=== PATIENT | female | born 1990 | race African-American/Black ===

== ENCOUNTER 2017-08-04 14:35 | Outpatient (CLI) | payer BC, OTHER | END 2017-08-04 14:36 | disposition home or self-care (01) | LOC: ULT 14:35 | PROVIDERS: ATTEND Family Medicine | DX: I38 Endocarditis, valve unspecified (principal) | CPT/HCPCS: 93306 ==

== ENCOUNTER 2017-08-30 06:58 | Emergency (ER) | payer BC, OTHER ==
[2017-08-30] MEDS ORDERED: Ondansetron ODT 4 MG TAB ONE (07:47)
[2017-08-30] MEDS ORDERED: Loperamide HCl 2 MG CAP ONE (07:47)
[2017-08-30 08:07] LABS: Bilirubin Negative (Negative); Blood, Urine Moderate (Negative); Clarity CLOUDY (Clear); Glucose, Urine (Dipstick) Negative (Negative); Leukocyte Moderate (Negative); Nitrite Negative (Negative); Protein, Urine (Dipstick) Negative (Neg-Trace); Specific Gravity, Urine 1.019 (1.002-1.036); Urobilinogen 0.2 mg/dL (0.2-1.0); pH, Urine 6.5 (5.0-9.0)
[2017-08-30 08:09] LABS: Bacteria/HPF 1+ HPF (None Seen); Hyaline Casts/LPF 4-6 HYALINE CAST LPF (0-3 Hyaline); Squamous Epithelial 0-3 HPF (0-3); WBC/HPF 21-50 HPF (0-3)
[2017-08-30 08:12] LABS: #Eosinphils 0.2 thou/uL (0.0-0.7); #Lymphocytes 2.1 thou/uL (1.20-3.40); #Monocytes 0.6 thou/uL (0.11-0.59); #Neutrophils 5.5 thou/uL (1.40-6.50); %Basophils 0.4 % (0.0-1.0); %Eosinophils 2.5 % (0.0-10.0); %Lymphocytes 24.9 % (21.0-51.0); %Monocytes 7.3 % (0.0-10.0); %Neutrophils 64.9 % (42.0-75.0); Hemoglobin 11.8 g/dL (12.0-16.0); Mean Corpuscular HGB CONC 33.8 g/dL (32.0-36.0); Mean Corpuscular Hemoglobin 29.5 pg (27.0-31.0); Mean Corpuscular Volume 87.4 fL (78.0-98.0); Mean Platelet Volume 6.4 fL (7.4-10.4); Platelet Count 244 thou/uL (130-400); RBC Distribution Width 11.7 % (11.5-14.5); Red Blood Cell (RBC) Count 3.99 mill/uL (4.20-5.40); White Blood Cell (WBC) Count 8.5 thou/uL (4.8-10.8)
[2017-08-30 08:31] LABS: ALT (SGPT) 7 U/L (8-55); AST (SGOT) 14 U/L (5-34); Albumin 3.3 g/dL (3.5-5.0); Alkaline Phosphatase 44 U/L (40-150); Anion Gap 10 mmol/L (10-20); BUN (Urea Nitrogen) 8 mg/dL (7.0-18.7); Bilirubin, Total 0.3 mg/dL (0.2-1.2); Calc. Creatinine Clearance 0 mL/min (70-130); Calcium 8.9 mg/dL (7.8-10.44); Carbon Dioxide 21 mmol/L (22-29); Chloride 107 mmol/L (98-107); Estimated GFR-MDRD Greater than 90; Glucose 82 mg/dL (70-105); Potassium 4.1 mmol/L (3.5-5.1); Protein, Total 6.3 g/dL (6.0-8.3); Sodium 134 mmol/L (136-145)
[2017-08-30] MEDS ORDERED: diphenhydrAMINE 50 MG/ML VIAL ONE (09:10)
== END 2017-08-30 09:42 | disposition home or self-care (01) ==
LOC: ERS 06:58
DX: O21.9 Vomiting of pregnancy, unspecified (principal); O23.42 Unspecified infection of urinary tract in pregnancy, second trimester; R19.7 Diarrhea, unspecified; Z79.899 Other long term (current) drug therapy; Z3A.16 16 weeks gestation of pregnancy
CPT/HCPCS: 80053; 81003; 81015; 85025; 96361; 96374; J1200; Q0162

== ENCOUNTER 2018-02-06 19:59 | Inpatient (IN) | payer BC, OTHER ==
--- NOTE | 2018-02-06 20:35 | PDOC.LDHP ---
Labor and Delivery H&P Chief complaint: scheduled induction HPI: 27 yo at 39.0 wk by LMP/10.2wk sono presents for medically indicated induction. 02/01/18 cervical check in clinic was closed, thick and high. Has been getting weekly BPP/NST for monitoring. Desires epidural. Denies contractions, LOF, vaginal bleeding or discharge. Reports feeling movement. Has never had elevated BPs until this . Not required any medication, 140s/90s at times in office. Current gestational age (weeks): 39 Due date: 02/13/18 Dating criteria: first trimester ultrasound Grav: 3 Para: 2 OB History Details: 2nd T anatomy sono done @ 21.2 normal Current complications: hypertension Abnormal US findings: No Current medications: pre-teressa vitamins Previous surgical history: none Social history: none - Physical Exam Vital signs reviewed and normal: yes General: NAD Heart: RRR Lungs: CTAB Abdomen: gravid Extremeties: no edema FHT: category 1 [place] contractions every: none - Vaginal Exam cm dilated: 0 Effacement: 0% Station: -3 - OB Labs Blood type: O RH: positive Antibody Screen: negative HIV: negative RPR: negative HEPSAg: negative 1 hour GCT: negative (129) GBS: negative Rubella: immune Additional Labs: sickle cell negative - Assessment L&D Assessment: elective induction at term - Plan Plan: admit to L&D, cervical ripening, labor augmentation if indicated -: 27 yo @ 39.0 presents for medically indicated IOL. Induction of labor at 39.0 wks 2/2 Chronic HTN - confirmed cephalic position on ultrasound, placental calcifications seen as well - cytotec to be placed - anesthesia consult for epidural - CBC, CMP, Urine prot/cr pending - NPO w/ice chips, LR @ 125 - GBS negative - plan for routine care Chronic HTN -Never had elevated BP before this , diagnosed before 20 weeks. Not required medication - BP 133/90, will continue to monitor Dispo: admit to L&D for IOL <Brenda Pleitez - Last Filed: 02/07/18 01:43> <Rosario Rob - Last Filed: 02/07/18 22:01> Allergies/Adverse Reactions: Allergies Allergy/AdvReac Type Severity Reaction Status Date / Time No Known Allergies Allergy Verified 02/06/18 21:05 Attending Addendum - Attending Addendum Date/Time: 02/06/18 0017 I personally evaluated the patient and discussed the management with Dr. Pleitez and Dr. [place] I agree with the History, Examination, Assessment and Plan documented above with any addition or exceptions noted below. 27 yo female at 39.0 wks by LMP/10.2 wk sono admitted for IOL 2/2 cHTN. Asymptomatic. BP controlled off-meds. testing and growth reassuring. Cephalic by beside sono. Calcifications noted throughout placenta. [place] or 4. Will start with cervical ripening agent. Cat 1 tracing. Patient would like epidural as needed for pain control. Will obtain baseline labs to make sure no evidence of related hypertension. GBS negative. Hermelindo <Rosario Rob - Last Filed: 02/07/18 22:01>
[2018-02-06] MEDS ORDERED: Misoprostol 200 MCG TAB PR PRN (21:01)
[2018-02-06] MEDS ORDERED: Ondansetron PF 4 MG/2 ML Vial IVP PRN (21:01)
[2018-02-06] MEDS ORDERED: Promethazine HCl 25 MG/ML VIAL IM PRN (21:01)
[2018-02-06] MEDS ORDERED: Ibuprofen 800 MG TAB PO PRN (21:01)
[2018-02-06] MEDS ORDERED: Lidocaine 1% (PF) 30 ML VIAL SC PRN (21:01)
[2018-02-06] MEDS ORDERED: Carboprost 250 MCG/ML AMP IM PRN (21:01)
[2018-02-06] MEDS ORDERED: Methylergonovine 0.2 MG/ML VIAL IM PRN (21:01)
[2018-02-06 21:05] VITALS: BMI 34.5
[2018-02-06 21:27] LABS: #Basophils 0.1 thou/uL (0.0-0.2); #Eosinphils 0.2 thou/uL (0.0-0.7); #Lymphocytes 1.9 thou/uL (1.20-3.40); #Monocytes 0.6 thou/uL (0.11-0.59); #Neutrophils 3.7 thou/uL (1.40-6.50); %Basophils 0.8 % (0.0-1.0); %Eosinophils 3.7 % (0.0-10.0); %Lymphocytes 28.7 % (21.0-51.0); %Monocytes 9.1 % (0.0-10.0); %Neutrophils 57.7 % (42.0-75.0); Hemoglobin 11.7 g/dL (12.0-16.0); Mean Corpuscular Hemoglobin 29.4 pg (27.0-31.0); Mean Corpuscular Volume 89.1 fL (78.0-98.0); Mean Platelet Volume 7.9 fL (7.4-10.4); Platelet Count 208 thou/uL (130-400); RBC Distribution Width 13.5 % (11.5-14.5); Red Blood Cell (RBC) Count 3.99 mill/uL (4.20-5.40); White Blood Cell (WBC) Count 6.5 thou/uL (4.8-10.8)
[2018-02-06] MEDS: Misoprostol 100 MCG TAB VAG SCH (21:29)
[2018-02-06 21:42] LABS: ALT (SGPT) 14 U/L (8-55); AST (SGOT) 18 U/L (5-34); Albumin 3.3 g/dL (3.5-5.0); Alkaline Phosphatase 115 U/L (40-150); Anion Gap 14 mmol/L (10-20); BUN (Urea Nitrogen) 10 mg/dL (7.0-18.7); Bilirubin, Total 0.5 mg/dL (0.2-1.2); Calc. Creatinine Clearance 206 mL/min (70-130); Carbon Dioxide 19 mmol/L (22-29); Chloride 108 mmol/L (98-107); Estimated GFR-MDRD Greater than 90; Globulin 2.7 g/dL (2.4-3.5); Glucose 101 mg/dL (70-105); Potassium 3.7 mmol/L (3.5-5.1); Sodium 137 mmol/L (136-145)
[2018-02-06 22:00] LABS: Syphilis Antibody Nonreactive (Nonreactive); Syphilis Antibody Index 0.04 S/CO (<1.00 Non-Reactive)
[2018-02-06] MEDS: Lactated Ringer's 1,000 ML IV SCH (22:05)
[2018-02-06 23:16] LABS: HBSAg Index 0.14 S/CO (0-0.99); HIV (1/2) Antibody/Antigen Non-Reactive (NonReactive); Hep B Surf Ag Non-Reactive S/CO (NonReactive)
--- NOTE | 2018-02-07 01:14 | PDOC.LDPN ---
Labor & Delivery Progress Note - Subjective Subjective: painful contractions - Objective Vital signs reviewed and normal: yes General: NAD Uterine fundus: non tender Dilation: 0 Effacement: 0% Station: -3 FHT: category 1 (145/mod/+accel/no decel) [place] contractions every: 2-3 min Plan: continue plan of care, labor augmentation -: Induction of labor at 39.0 wks 2/2 Chronic HTN - confirmed cephalic position on ultrasound, placental calcifications seen as well - desires epidural - CBC, CMP normal - Urine prot/cr pending - NPO w/ice chips, LR @ 125 - GBS negative - plan for routine care - considering contractions q1-3 minutes, will not place another cytotec at this time, will continue to monitor Chronic HTN -Never had elevated BP before this , diagnosed before 20 weeks. Not required medication -BP 136/81, will continue to monitor <Brenda Pleitez - Last Filed: 02/07/18 08:50> Attending Addendum - Attending Addendum Date/Time: 02/07/18 0200 I personally evaluated the patient and discussed the management with Dr. Pleitez I agree with the History, Examination, Assessment and Plan documented above with any addition or exceptions noted below. 27 yo female at 39.1 wks by LMP/10.2 wk sono admitted for IOL 2/2 cHTN Cervix still unfavorable but now with consistent contraction pattern. Cat 1 tracing. Will continue to monitor. Repeat exam in 2 to 4 hours. Labs WNL. Remains asymptomatic. BP mild range. Continue to monitor. Epidural as needed for pain. ABrayMD <Rosario Rob - Last Filed: 02/07/18 22:04>
[2018-02-07] MEDS: Misoprostol 100 MCG TAB VAG SCH ×2 (01:50→08:25)
[2018-02-07] MEDS ORDERED: Butorphanol Tartrate 1 MG/ML VIAL SLOW IVP PRN (01:50)
[2018-02-07] MEDS ORDERED: Fentanyl 4 mcg/Bup 0.1% Cadd 100 ML ONE (02:47)
[2018-02-07] MEDS: Lactated Ringer's 1,000 ML IV SCH (03:22)
[2018-02-07] MEDS ORDERED: Acetaminophen 325 MG TAB PO PRN (03:36)
[2018-02-07] MEDS ORDERED: diphenhydrAMINE 50 MG/ML VIAL IVP PRN (03:36)
[2018-02-07] MEDS ORDERED: Ondansetron PF 4 MG/2 ML Vial IVP PRN (03:36)
[2018-02-07] MEDS ORDERED: Promethazine HCl 25 MG/ML VIAL IM PRN (03:36)
[2018-02-07] MEDS ORDERED: Naloxone HCl 0.4 mg/ml Vial IVP PRN ×2 (03:36)
[2018-02-07] MEDS ORDERED: Lactated Ringer's 500 ML IV PRN (03:36)
[2018-02-07] MEDS ORDERED: ePHEDrine/0.9% NaCl/PF SYRINGE 50 mg/10 ml SLOW IVP PRN (03:36)
[2018-02-07] MEDS ORDERED: Eucerin (Mineral Oil/Petrolatum,White) 30 gm Jar TOP PRN (03:36)
[2018-02-07] MEDS ORDERED: Communication Order-Pharmacy FS SCH (03:45)
[2018-02-07] MEDS ORDERED: Fentanyl 4 mcg/Bupivacaine 0.1% Cassette 100 ML EPIDURAL SCH (03:45)
[2018-02-07 03:57] LABS: Creatinine, Urine 68.63 mg/dL (47-110); Protein, Urine Random Quant Less than 10 mg/dL (1-14)
[2018-02-07] MEDS: NS / Oxytocin 40 units/1000ml 1,000 ML IV PRN ×2 (04:45→06:13)
[2018-02-07] MEDS ORDERED: Methylergonovine 0.2 MG/ML VIAL IM PRN (07:52)
[2018-02-07] MEDS ORDERED: Misoprostol 200 MCG TAB VAG PRN (07:52)
[2018-02-07] MEDS ORDERED: Ibuprofen 800 MG TAB PO SCH ×2 (07:52→08:15)
[2018-02-07] MEDS ORDERED: Bisacodyl 10 MG SUPP PR PRN (07:52)
[2018-02-07] MEDS: Lanolin Ointment 7 GM TUBE TOP PRN (08:56)
[2018-02-07] MEDS: Docusate Calcium (SURFAK) 240 MG CAP PO SCH ×2 (08:56→22:16)
[2018-02-07] MEDS: Prenatal Vitamin 1 TAB PO SCH (08:56)
--- NOTE | 2018-02-07 08:57 | PDOC.OPDEL ---
OB Operative/Delivery Note Delivery Dr/Surgeon: Maik/Darron Pre-Delivery Diagnosis: medically indicated induction Procedure/Post Delivery Dx: spontaneous vaginal delivery Weeks gestation: 39 (39.1) Anesthesia: epidural - Additional Findings/Plan Placenta delivered: spontaneous Repaired Obstetrical Laceration: 2nd degree (midline) Estimated blood loss: 100 mL Compilations/Other Findings: Delivering Physician: Maik Attending: Darron Procedure: Spontaneous Vaginal Delivery Anesthesia: epidural, Local for Repair EBL: 100 ml Pre-op Diagnosis: 1. Term intrauterine in labor, cytotec induction 2. Chronic HTN Post-op Diagnosis: 1. Term intrauterine , delivered 2. same as above Indications: A 27 y/o female presents to L&D for induction due to chronic HTN. Delivery Note: This is 27 yo F now 3 @ 39.1 wks who delivered a viable F at 0437. Following an antepartum course complicated by chronic HTN, a vigorous F was delivered over an intact perineum in the OA position. Anterior Shoulder and then remainder of the body delivered. No nuchal cord. The head was held down and mouth and nares were bulb suctioned. Cord clamped and cut and cord blood collected. Placenta delivered intact in the [place] presentation with a 3 vessel cord noted. Fundal massage was performed and the fundus was firm. The cervix and vagina were inspected. Two hemostatic labial lacerations noted. One 2nd degree midline laceration noted and repaired with suture in the usual fashion with good approximation and hemostasis after a local anesthetic 10mL was injected at site. Infant went to nursery in good condition for routine care. Apgars were 9/9 at 1 & 5 minutes, respectively. Patient tolerated delivery well and went to after routine recovery/care. Post delivery plan: routine recovery <Brenda Pleitez - Last Filed: 02/07/18 08:51> Attending Addendum - Attending Addendum Date/Time: 02/07/18 0600 I personally evaluated the patient and discussed the management with Dr. Pleitez I was present and participated in the above documented procedure. 27 yo female at 39.1 wks by LMP/10.2 admitted for IOL 2/2 cHTN. Progressed well after initiation of induction with miso. Cat 1 tracing throughout labor. Uncomplicated of female infant. 1st degree perineal laceration s/p repair. APGARs 9/9. Breast feeding. Transfer to for routine care. Will monitor BP closely and s/sx of superimposed preeclampsia. Hermelindo <Rosario Rob - Last Filed: 02/07/18 22:07>
[2018-02-07] MEDS ORDERED: Lidocaine 2% MPF 10 ML AMP (For Epidural Use) ONE (11:11)
[2018-02-07] MEDS ORDERED: HYDROcodone/Acetaminophen 5/325 mg Tablet PO SCH (15:15)
[2018-02-07] MEDS: Ibuprofen 800 MG TAB PO SCH (16:18)
[2018-02-08] MEDS: Ibuprofen 800 MG TAB PO SCH ×3 (00:12→17:01)
--- NOTE | 2018-02-08 06:46 | PDOC.PP ---
Post Progress Note Post Day #: 1 Subjective: Patient is overall feeling well today, eating and drinking, voiding and had a BM. States her lochia is more than a period. Denies light headedness. PO intake tolerated: yes Flatus: yes Ambulation: yes Vital Signs (12 hours) Temp Pulse Resp BP Pulse Ox 02/08/18 04:35 98.5 F 62 18 130/74 96 02/08/18 00:15 97.7 F 68 20 130/68 02/07/18 19:35 97.8 F 63 18 134/68 Weight Weight 97.069 kg - Physical Examination General: NAD Cardiovascular: no m/r/g, RRR Respiratory: clear to auscultation bilaterally, non-labored breathing Abdominal: + bowel sounds, lochia Fundus firm & at: 1 cm above umbilicus Extremities: negative homans (B) Neurological: no gross focal deficits Psychiatric: A&Ox3, normal affect Result Diagrams: 02/08/18 07:00 02/06/18 21:14 Additional Labs: Post Labs Blood Type O POSITIVE 02/06/18 21:14 Hep Bs Antigen Non-Reactive S/CO (NonReactive) 02/06/18 21:14 - Assessment/Plan 27 yo Induction of labor delivered via 39.1 wks 2/2 Chronic HTN, PPD #1 PPD#1 - Feeding, voiding, stooling, ambulating well; plan for routine care - Hgb 11.7-> 11.1 - GBS negative - Syphilis, Hep B, RPR negative - 2nd degree Lac s/p repair - EBL 400 ml, has had some heavy lochia, continue to monitor - consulted, she has had some difficulty with latch - Desires tubal ligation, in discussion with her PCP - Pain control with tylenol and IBP, used one dose [place] yesterday Chronic HTN -Never had elevated BP before this , diagnosed before 20 weeks. Not required medication -BP stable, Continue to monitor Dispo: Plan to DC to home most likely tomorrow <Piedad Crocker - Last Filed: 02/08/18 09:09> Vital Signs (12 hours) Temp Pulse Resp BP Pulse Ox 02/08/18 08:04 98.3 F 72 20 131/74 98 02/08/18 04:35 98.5 F 62 18 130/74 96 02/08/18 00:15 97.7 F 68 20 130/68 Weight Weight 97.069 kg Result Diagrams: 02/08/18 07:00 02/06/18 21:14 Additional Labs: Post Labs Blood Type O POSITIVE 02/06/18 21:14 Hep Bs Antigen Non-Reactive S/CO (NonReactive) 02/06/18 21:14 <Carlos Banks - Last Filed: 02/08/18 11:22> Attending Addendum - Attending Addendum Date/Time: 02/08/18 1121 I personally evaluated the patient and discussed the management with Dr. Crocker. I agree with the History, Examination, Assessment and Plan documented above with any addition or exceptions noted below. <Carlos Banks - Last Filed: 02/08/18 11:22>
[2018-02-08 07:22] LABS: Hemoglobin 11.1 g/dL (12.0-16.0); Mean Corpuscular HGB CONC 33.9 g/dL (32.0-36.0); Mean Corpuscular Hemoglobin 30.6 pg (27.0-31.0); Mean Corpuscular Volume 90.4 fL (78.0-98.0); Mean Platelet Volume 7.7 fL (7.4-10.4); Platelet Count 199 thou/uL (130-400); RBC Distribution Width 13.6 % (11.5-14.5); Red Blood Cell (RBC) Count 3.63 mill/uL (4.20-5.40); White Blood Cell (WBC) Count 10.8 thou/uL (4.8-10.8)
[2018-02-08] MEDS: Prenatal Vitamin 1 TAB PO SCH (09:05)
[2018-02-08] MEDS: Docusate Calcium (SURFAK) 240 MG CAP PO SCH ×2 (09:05→22:10)
[2018-02-09] MEDS: Ibuprofen 800 MG TAB PO SCH ×2 (01:34→09:36)
--- NOTE | 2018-02-09 05:33 | PDOC.PP ---
Post Progress Note Post Day #: 2 Subjective: Patient is feeling well this AM. Ambulating, eating and drinking, voiding and stooling. Discussed putting baby "back to sleep" with no surrounding blankets, discussed fever precautions. PO intake tolerated: yes Flatus: yes Ambulation: yes Vital Signs (12 hours) Temp Pulse Resp BP Pulse Ox 02/08/18 20:12 98.1 F 68 16 133/76 99 Weight Weight 97.069 kg - Physical Examination General: NAD Cardiovascular: no m/r/g, RRR Respiratory: clear to auscultation bilaterally, non-labored breathing Abdominal: + bowel sounds, lochia (improved, minimal), no distention, appropriately TTP Extremities: negative homans (B) Neurological: no gross focal deficits Psychiatric: A&Ox3, normal affect Result Diagrams: 02/08/18 07:00 02/06/18 21:14 Additional Labs: Post Labs Blood Type O POSITIVE 02/06/18 21:14 Hep Bs Antigen Non-Reactive S/CO (NonReactive) 02/06/18 21:14 (1) Intrauterine normal Code(s): Z34.90 - ENCNTR FOR SUPRVSN OF NORMAL , UNSP, UNSP TRIMESTER Status: Acute (2) Multigravida Code(s): Z64.1 - PROBLEMS RELATED TO MULTIPARITY Status: Acute - Assessment/Plan 27 yo Induction of labor delivered via 39.1 wks 2/2 Chronic HTN, PPD #1 PPD#1 - Feeding, voiding, stooling, ambulating well; plan for routine care - Hgb 11.7-> 11.1 - GBS negative - Syphilis, Hep B, RPR negative - 2nd degree Lac s/p repair - EBL 400 ml - Lochia is improved, minimal now - Saw yesterday, breast feeding is going better - Desires tubal ligation, follow up with PCP - Pain control with tylenol and IBP Chronic HTN -Never had elevated BP before this , diagnosed before 20 weeks. Not required medication -BP stable, Continue to monitor Dispo: DC today <Piedad Crocker - Last Filed: 02/09/18 07:12> Vital Signs (12 hours) Temp Pulse Resp BP Pulse Ox 02/09/18 07:55 98.6 F 61 20 126/69 97 Weight Weight 97.069 kg Result Diagrams: 02/08/18 07:00 02/06/18 21:14 Additional Labs: Post Labs Blood Type O POSITIVE 02/06/18 21:14 Hep Bs Antigen Non-Reactive S/CO (NonReactive) 02/06/18 21:14 <Carlos Banks - Last Filed: 02/09/18 09:13> Attending Addendum - Attending Addendum Date/Time: 02/09/18 0913 I personally evaluated the patient and discussed the management with Dr. Crocker. I agree with the History, Examination, Assessment and Plan documented above with any addition or exceptions noted below. <Carlos Banks - Last Filed: 02/09/18 09:13>
[2018-02-09 07:56] VITALS: BP 126/69; TEMP 98.6
[2018-02-09] MEDS: Prenatal Vitamin 1 TAB PO SCH (09:36)
[2018-02-09] MEDS: Docusate Calcium (SURFAK) 240 MG CAP PO SCH (09:36)
[2018-02-09] MEDS: Lanolin Ointment 7 GM TUBE TOP PRN (11:33)
== END 2018-02-09 11:45 | disposition home or self-care (01) | DRG 807 ==
LOC: L&D 19:59 → 3SW 02-07 07:43
PROVIDERS: ADMIT Family Medicine; ATTEND Family Medicine
PROC: 10E0XZZ Delivery of Products of Conception, External Approach (ICD-10-PCS; principal; 2018-02-07)
PROC: 0KQM0ZZ Repair Perineum Muscle, Open Approach (ICD-10-PCS; 2018-02-07)
PROC: 3E033VJ Introduction of Other Hormone into Peripheral Vein, Percutaneous Approach (ICD-10-PCS; 2018-02-07)
DX: O16.4 Unspecified maternal hypertension, complicating childbirth (principal); Z37.0 Single live birth; O70.1 Second degree perineal laceration during delivery; Z3A.39 39 weeks gestation of pregnancy
CPT/HCPCS: 36415; 51702; 76815; 80053; 82570; 84156; 85025; 85027; 86780; 86850; 86900; 86901; 87340; 87389; J0595; J2001

== ENCOUNTER 2018-03-05 18:44 | Emergency (ER) | payer BC, OTHER | END 2018-03-05 18:46 | disposition left against medical advice (07) | LOC: ERS 18:44 | DX: Z53.21 Procedure and treatment not carried out due to patient leaving prior to being seen by health care provider (principal) ==

== ENCOUNTER 2018-12-23 19:20 | Emergency (ER) | payer BC, OTHER ==
[2018-12-23] MEDS ORDERED: HYDROcodone/Acetaminophen 10/325 mg Tablet ONE (19:48)
[2018-12-23] MEDS ORDERED: Triple Antibiotic Oint 1 GM Packet ONE (20:08)
--- NOTE | 2018-12-23 20:17 | CT ---
CT BRAIN WITHOUT CONTRAST: 12/23/18 HISTORY: Head injury. Right eye pain. FINDINGS: No evidence of acute infarct, hemorrhage, midline shift, or abnormal extra-axial fluid collections se en. The ventricular size is normal and the basilar cisterns patent. The bony calvarium is intact. The re is mucosa disease in the paranasal sinuses. IMPRESSION: 1. No CT evidence of acute intracranial process. 2. If there is concern for orbital injury, further evaluation with CT scan of the facial bones s hould be obtained. POS: RAMANDEEP
--- NOTE | 2018-12-23 20:21 | CT ---
Exam: Facial bone CT without contrast HISTORY: Right orbital trauma Comparison: None FINDINGS: Visualized brain parenchyma is unremarkable Mild mucosal thickening of the ethmoid air cells. Small mucous retention cyst in the left maxillary s inus Pterygopalatine fossa is symmetric. Pterygoid plates are intact Zygomatic arches are intact Maxilla and mandible are intact. No fracture. Mandibular condyles are appropriately located Coronal images demonstrate patent bilateral ostiomeatal complexes. Mild leftward deviation of the per al septum. The osseous margins of the paranasal sinuses are maintained Mild right periorbital posttraumatic soft tissue swelling and hematoma. There is a slight right exoph thalmos. Bilateral ocular lenses are appropriately located. Both globes are intact. Retrobulbar fat is preserved. Symmetric attenuation of the optic nerves and ocular rectus muscles. The osseous margin s of the orbits are maintained. Nasal bones are unremarkable. IMPRESSION: Post traumatic changes involving the right orbit and periorbital soft tissues. No evidence of a fract ure. Transcribed Date/Time: 12/23/2018 8:47 PM
[2018-12-23] MEDS ORDERED: Fluorescein Opthalmic Strip ONE ×3 (20:52→21:18)
[2018-12-23] MEDS ORDERED: Proparacaine 0.5% Opth 15 ML BOT ONE (20:54)
== END 2018-12-23 21:50 | disposition home or self-care (01) ==
LOC: ERS 19:20
DX: S00.83XA Contusion of other part of head, initial encounter (principal); S05.01XA Injury of conjunctiva and corneal abrasion without foreign body, right eye, initial encounter; Y04.8XXA Assault by other bodily force, initial encounter
CPT/HCPCS: 70450; 70486

== ENCOUNTER 2019-06-20 07:14 | Emergency (ER) | payer BC, OTHER ==
[2019-06-20] MEDS ORDERED: Acetaminophen 500 MG TAB ONE (08:17)
[2019-06-20 08:28] LABS: Bilirubin Negative (Negative); Blood, Urine Negative (Negative); Clarity Clear (Clear); Glucose, Urine (Dipstick) Normal (Negative); Leukocyte Negative Leu/uL (Negative); Nitrite Negative (Negative); Protein, Urine (Dipstick) Negative (Neg-Trace); Urobilinogen Normal mg/dL (Less than 2)
[2019-06-20 08:29] LABS: #Basophils 0.1 thou/uL (0.0-0.2); #Eosinphils 0.3 thou/uL (0.0-0.7); #Lymphocytes 1.8 thou/uL (1.20-3.40); #Monocytes 0.4 thou/uL (0.11-0.59); #Neutrophils 3.7 thou/uL (1.40-6.50); %Basophils 1.1 % (0.0-1.0); %Monocytes 6.2 % (0.0-10.0); %Neutrophils 58.7 % (42.0-75.0); Hemoglobin 12.6 g/dL (12.0-16.0); Mean Corpuscular HGB CONC 32.3 g/dL (32.0-36.0); Mean Corpuscular Hemoglobin 29.5 pg (27.0-31.0); Mean Corpuscular Volume 91.5 fL (78.0-98.0); Mean Platelet Volume 6.6 fL (7.4-10.4); Platelet Count 296 thou/uL (130-400); RBC Distribution Width 11.9 % (11.5-14.5); Red Blood Cell (RBC) Count 4.26 mill/uL (4.20-5.40); White Blood Cell (WBC) Count 6.3 thou/uL (4.8-10.8)
[2019-06-20] MEDS ORDERED: Ondansetron ODT 4 MG TAB ONE (08:48)
--- NOTE | 2019-06-20 09:53 | ULT ---
Exam: Transabdominal and endovaginal pelvic ultrasound HISTORY:New . IUP was not demonstrated two days ago. Left lower quadrant pain. Serum beta HC G 2150 COMPARISON: None TECHNIQUE: Transabdominal and endovaginal imaging of the pelvis is performed. Ovaries are interrogate d with grayscale, color flow, Doppler imaging and spectral wave form analysis FINDINGS: Uterus: Heterogeneous mass in the anterior myometrium measuring 1.9 x 2.2 x 2.3 cm is presumed to rep resent a uterine leiomyoma. Uterus measurin.2 x 6.6 x 7.0 cm. Endometrium: Within the endometrium, there is a gestational sac, yolk sac and pole. [place]-rump length: 1.81 cm, corresponding to gestational age of 8 weeks 2 days. heart tones: None.. Free fluid: Complex free fluid in the pelvis. Right ovary: Normal echotexture Right ovary measurement: 2.0 x 1.9 x 3.5 cm Left ovary: There is a solid echotexture focus that has a somewhat superior position and is best demo nstrated on the transabdominal image. This solid echotexture focus appears to measure 6.9 x 6.6 x 9.9 cm. There is associated vascular flow Ovarian Doppler: There is vascular flow to the normal-appearing right ovary. There is vascular flow to the solid echot exture focus in the left adnexa as described above. IMPRESSION: 1. Sonographic evidence for a gestational sac, yolk sac and pole. Gestational age by crown-rump length is 8 weeks 2 days. heart tones are absent. Follow-up ultrasound and serial beta Hcg are recommended 2. Complex fluid in the pelvis. 3. Solid echotexture focus in the left adnexa which may represent left ovary. Definite anechoic focus with ring of fire suggesting a concomitant ectopic is not appreciated. Nevertheless, given the presence of complex fluid OB consultation is recommended. Results study discussed with Dr. Rapp 06/20/2019 Code CR Transcribed Date/Time: 06/20/2019 9:59 AM
== END 2019-06-20 11:18 | disposition home or self-care (01) ==
LOC: ERS 07:14
DX: O99.89 Other specified diseases and conditions complicating pregnancy, childbirth and the puerperium (principal); R10.2 Pelvic and perineal pain
CPT/HCPCS: 36415; 76856; 81003; 84702; 85025; Q0162

== ENCOUNTER 2019-09-21 16:02 | Outpatient (CLI) | payer BC ==
--- NOTE | 2019-09-22 07:56 | ULT ---
ULTRASOUND PELVIC ULTRASOUND TRANSVAGINAL DOPPLER DUPLEX: DATE: 09/22/2019 HISTORY: 29-year-old female with menometrorrhagia following spontaneous ICD-10: Old 03.9 TECHNIQUE: Transabdominal transducer and endovaginal transducer used to visualize intrapelvic contents with mathias scale, color-flow, and spectral analysis. FINDINGS: Uterus:10.5 x 6.5 x 6 cm. Endometrial stripe:1.1 cm (11 mm). No intrauterine gestational sac. Right ovary: 3.3 x 3.3 x 3.4 cm. Left ovary: 4.1 x 3.2 x 3.9 cm Uterine leiomyoma (fibroid):None Blood flow in ovaries:Bilaterally demonstrated Ovarian cyst:2.3 cm right ovarian cyst Free fluid in the cul-de-sac:None IMPRESSION: 1) 2.3 cm right ovarian cyst. 2) otherwise negative
== END 2019-09-21 16:03 | disposition home or self-care (01) ==
LOC: BICULT 16:02
PROVIDERS: ATTEND Family Medicine
DX: O03.9 Complete or unspecified spontaneous abortion without complication (principal); N83.201 Unspecified ovarian cyst, right side
CPT/HCPCS: 76856

== ENCOUNTER 2020-10-31 12:58 | Emergency (ER) | payer BC ==
[2020-11-01 03:45] LABS: SARS-CoV-2 PCR by NAA Not Detected (NotDetected)
== END 2020-10-31 13:45 | disposition home or self-care (01) ==
LOC: ERS 12:58
DX: Z20.822 Contact with and (suspected) exposure to COVID-19 (principal)
CPT/HCPCS: 99283; U0003; U0005